=== PATIENT | male | born 2000 | race Caucasian/White ===

== ENCOUNTER 2018-09-14 12:29 | Emergency (ER) | payer OTHER ==
[2018-09-14 12:34] VITALS: BP 142/89
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
== END 2018-09-14 13:15 | disposition home or self-care (01) ==
DX: S42.021A Displaced fracture of shaft of right clavicle, initial encounter for closed fracture (principal); V18.2XXA Unspecified pedal cyclist injured in noncollision transport accident in nontraffic accident, initial encounter; Y92.830 Public park as the place of occurrence of the external cause; Y93.55 Activity, bike riding
CPT/HCPCS: A4565